=== PATIENT | male | born 1990 | race Caucasian/White ===

== ENCOUNTER 2021-12-30 10:25 | Emergency (ER) | payer BC ==
[2021-12-30] MEDS ORDERED: Sodium Chloride 0.9% 10 ML Syringe FLUSH PRN (10:54)
[2021-12-30] MEDS ORDERED: Sodium Chloride 0.9% 1,000 ML IV ONE (10:54)
[2021-12-30] MEDS ORDERED: Sodium Chloride 0.9% 50 ML SDV FLUSH ONE (11:13)
[2021-12-30] MEDS ORDERED: Iopamidol 612 MG/ML 100 ML Bottle IV SCH (11:15)
== END 2021-12-30 12:25 | disposition home or self-care (01) ==
LOC: LB.ED 10:25
DX: R10.31 Right lower quadrant pain (principal)
CPT/HCPCS: 36415; 74177; 80053; 81003; 85025; 99284; J7030